=== PATIENT | female | born 1980 | race African-American/Black ===

== ENCOUNTER 2025-07-09 18:05 | Emergency (ER) | payer OTHER, SELFPAY ==
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
[2025-07-09 18:09] VITALS: BP 127/65; PULSE 73; RESP 16; TEMP 36.7; O2SAT 100
[2025-07-09 22:04] LABS: BEDSIDEPREGUCG Negative (Negative)
[2025-07-09 23:15] VITALS: PULSE 62; RESP 14; O2SAT 100
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
== END 2025-07-09 23:16 | disposition home or self-care (01) ==
DX: S39.92XA Unspecified injury of lower back, initial encounter (principal); M79.605 Pain in left leg; M79.604 Pain in right leg; M47.816 Spondylosis without myelopathy or radiculopathy, lumbar region; V49.50XA Passenger injured in collision with unspecified motor vehicles in traffic accident, initial encounter
CPT/HCPCS: 72131; 73590; 81025; 99284